=== PATIENT | female | born 1940 | race Caucasian/White ===

== ENCOUNTER → 2017-12-04 | Outpatient (CLI) | payer MEDICARE, OTHER ==
[~2017-12-04] MED LIST: ASPIRIN 32325 MG/TA1 PO; LIPITOR 40MG TA40 MG PO; MULTIPLE VITAMI1 CAP PO; PRINIVIL40 MG PO; RITE AID KRILL500 MG PO; TENORMIN 2525 MG/TAB; VITAMIN D2000 I1 PO
== END ==
LOC: MC.RAD 10:00
DX: Z12.31 Encounter for screening mammogram for malignant neoplasm of breast (principal); N64.89 Other specified disorders of breast

== ENCOUNTER → 2017-12-10 | Outpatient (CLI) | payer MEDICARE, OTHER | LOC: MC.RAD 08:57 | DX: R92.8 Other abnormal and inconclusive findings on diagnostic imaging of breast (principal) ==

== ENCOUNTER 2022-04-05 10:13 | Emergency (ER) | payer MEDICARE, OTHER ==
[~2022-04-05] VITALS: Ht 162.6 cm; Wt 52.3 kg
[2022-04-05 10:21] VITALS: TEMP 97.3
[2022-04-05] MEDS ORDERED: PRINIVIL20 MG PO (12:42)
[2022-04-05] MEDS ORDERED: ZOLOFT 100MG100 MG PO (12:44)
[2022-04-05] MEDS ORDERED: NORCO 325 MG-51 TAB PO (13:49)
[2022-04-05 14:04] VITALS: BP 159/61; PULSE 67
== END 2022-04-05 14:00 | disposition home or self-care (01) ==
LOC: COL.ER 10:13
DX: S02.622A Fracture of subcondylar process of left mandible, initial encounter for closed fracture (principal); S02.5XXA Fracture of tooth (traumatic), initial encounter for closed fracture; S01.81XA Laceration without foreign body of other part of head, initial encounter; M25.532 Pain in left wrist; W01.198A Fall on same level from slipping, tripping and stumbling with subsequent striking against other object, initial encounter; Y93.73 Activity, racquet and hand sports